=== PATIENT | male | born 1970 | race Caucasian/White ===

== ENCOUNTER 2024-06-12 20:40 | Emergency (ER) | payer MEDICAID, SELFPAY ==
[2024-06-12] VITALS (8 sets, daily range): BP systolic 123–152; BP diastolic 77–95; PULSE 78–98; RESP 17–20; TEMP 36.2; O2SAT 98–100
--- NOTE | ~2024-06-12 | XR_ITS ---
EXAMINATION: XR shoulder RT min 2V DATE: 06/12/2024 21:35 INDICATION: Right shoulder pain post fall TECHNIQUE: AP and transscapular Y views of the right shoulder were obtained. COMPARISON: None FINDINGS: Normal alignment. Chronic appearing either ununited rib fracture or more likely thoracotomy defect at the posterior right fifth rib. No acute appearing fracture. Advanced right glenohumeral osteoarthrit is with prominent hypertrophic change along the right humeral head. Mild acromioclavicular osteoarthr itis. Blunting at the right costophrenic angle which could represent a small pleural effusion or scar ring related to prior partial pneumonectomy. IMPRESSION: 1. Advanced right glenohumeral osteoarthritis. No acute osseous abnormality. 2. Suggestion of likely right posterior fifth rib thoracotomy defect and blunted right costophrenic a ngle which could be related to prior partial pneumonectomy or small pleural effusion. Correlate with clinical/surgical history. Reviewed, dictated and finalized at location A. IMPRESSION: 1. Advanced right glenohumeral osteoarthritis. No acute osseous abnormality. 2. Suggestion of likely right posterior fifth rib thoracotomy defect and blunte d right costophrenic angle which could be related to prior partial pneumonectom y or small pleural effusion. Correlate with clinical/surgical history.
--- NOTE | ~2024-06-12 | XR_ITS ---
EXAMINATION: XR chest 1V portable DATE: 06/12/2024 21:35 INDICATION: Chest pain TECHNIQUE: frontal view of the chest was obtained. COMPARISON: Chest radiograph dated 05/01/2004 FINDINGS: Blunting of the right costophrenic angle with smooth margins suggesting small right pleural effusion. Mild linear discoid atelectasis in the right mid and lower lung zones. No other airspace opacities, pulmonary edema, pneumothorax or left-sided pleural effusion. The cardiomediastinal silhouette is nor mal. Advanced osteoarthritis at the right glenohumeral joint. IMPRESSION: 1. Small right pleural effusion with mild discoid atelectasis in the right mid and lower lung zones. Reviewed, dictated and finalized at location A.
--- NOTE | 2024-06-12 20:42 | ED.CHESTPAIN ---
HPI - Chest Pain General Chief Complaint: Unspecified Stated Complaint: chest pain Time Seen by Provider: 06/12/24 20:41 Source: patient Mode of arrival: ambulatory Limitations: no limitations History of Present Illness HPI narrative: Patient is a 54-year-old male with IVDA use and opioids here for leaving AMA from a local hospital in the past week. He was in the hospital for endocarditis and valve infections of the heart as well as arrhythmia. He left AMA and they took his PICC line out. Patient was given a few weeks until he would from this infection per information from the family. Patient wanted to go back to using opioids and left the hospital. He also hurt his right shoulder. He has chronic right shoulder pain. He has an infection on the right lower extremity which is the nidus of infection for the endocarditis likely. MD complaint: other ( Right shoulder pain) Pertinent past history: other ( known arrhythmia and endocarditis in the past month partially treated; noncompliance and here for starting treatment again) Onset (ago): week(s) Timing of current episode: constant Prior episodes: Yes Onset: during rest and during exertion Pain location: right chest Pain radiation: none Severity: mild Pain scale (0-10): 5 Quality: sharp Relieving factors: nothing Exacerbating factors: nothing Context: recent illness and trauma/injury Associated symptoms: palpitations and leg swelling ( chronic; wound on the right lower extremity) Treatment prior to arrival: none and other ( non compliant and off all medication at this time) Risk Factors Coronary artery disease risk factors: none Thoracic aortic dissection risk factors: none Review of Systems Review of Systems: All systems reviewed & are unremarkable except as noted in HPI and below Constitutional: Constitutional: Reports no additional constitutional complaints Eyes: Eyes: Reports no additional eye complaints ENT: Reports system reviewed and no additional complaints, except as documented Cardiovascular: Cardiovascular: Reports no additional cardiovascular complaints Respiratory: Respiratory: Reports no additional respiratory complaints Gastrointestinal: Gastrointestinal: Reports no additional gastrointestinal complaints Genitourinary: Genitourinary: Reports no additional male genitourinary complaints Musculoskeletal: Musculoskeletal: Reports no additional musculoskeletal complaints Integumentary/Breasts: Skin/Breast: Reports system reviewed and no additional complaints, except as docu Neurologic: Reports system reviewed and no additional complaints, except as documented Psychiatric: Psychiatric: Reports no additional psychiatric complaints Endocrine: Endocrine: Reports no additional endocrine complaints Hematologic/Lymphatic: Hematologic/Lymphatic: Reports no additional hematologic/lymphatic complaints Allergic/Immunologic: Allergic/Immunologic: Reports no additional allergic/immunologic complaints Exam Const: General: healthy appearing Nutritional Appearance: well nourished Orientation/consciousness: patient oriented x3 HENMT: Head: normal to inspection Ears: external ears normal Face/Nose/Sinus: Normal external nose present Eyes: Conjunctivae: conjunctivae normal Pupils: Equal, round and reactive pupils present EOM: EOMs intact bilaterally Neck: Neck: normal visual inspection Chest: Chest palpation & inspection: normal inspection of the chest Resp: Effort & Inspection: normal respiratory effort and not labored Auscultation: clear to auscultation bilaterally Cardio: Rate: regular rate Rhythm: abnormal rhythm Heart sounds: Murmur heart sound present GI: Inspection: non-distended GI Palp: Yes Soft to palpation and No Tenderness to palpation present (GI) Auscultation: normal bowel sounds : General: Yes bladder normal to palpation Back/Spine/Pelvis: Back: no CVA tenderness Skin: General skin exam: normal color Rashes: no rashes Wounds: wound
--- NOTE | 2024-06-12 20:45 | ECG_ITS ---
Test Date: 2024-06-12 20:54:49 Measurements Intervals Raymond Rate: 97 P: 0 CO: 0 QRS: 168 QRSD: 88 T: 137 QT: 374 QTc: 477 Interpretive Statements SINUS RHYTHM WITH FIRST DEGREE AV BLOCK WITH ATRIAL AND VENTRICULAR PREMATURE COMPLEXES LIMB LEAD REVERSAL NON-CONDUCTED ATRIAL PREMATURE COMPLEX INCOMPLETE RIGHT BUNDLE BRANCH BLOCK BASELINE ARTIFACT- I, II, AVR, AVL, AVF, V1-V6 BORDERLINE ECG No previous ECG available for comparison Electronically Signed On 06-13-2024 06:34:21 CDT by Filippo Lima D.O.
--- NOTE | 2024-06-12 20:45 | PC.NURSE ---
this RN attempted to look for iv line site. patient reports that he is a hard stick, at previous hospital he had a picc line and a midline placed. hx of drug abuse in the past
--- NOTE | 2024-06-12 21:51 | PC.NURSE ---
iv line placement has been attempted by three providers with no success. plan is for central line placement
--- NOTE | 2024-06-12 21:57 | PC.NURSE ---
patient and sister have been talking. they want to leave and go to [facility] to a bigger hospital. AMA form signed and placed on chart. risks and benefits were discussed with patient and sister about leaving [facility]a. continues to want to leave
== END 2024-06-12 22:00 | disposition left against medical advice (07) ==
LOC: CHSED 22:00
PROVIDERS: Emergency Provider Emergency Medicine
DX: I48.91 Unspecified atrial fibrillation (principal); I38 Endocarditis, valve unspecified; F11.20 Opioid dependence, uncomplicated; S81.801D Unspecified open wound, right lower leg, subsequent encounter; X58.XXXD Exposure to other specified factors, subsequent encounter
CPT/HCPCS: 71045; 73030; 93005; 99284